=== PATIENT | female | born 1975 | race Caucasian/White ===

== ENCOUNTER 2017-06-11 03:25 | Emergency (ER) | payer MEDICAID ==
[~2017-06-11] VITALS: Ht 162.6 cm; Wt 77.1 kg
[2017-06-11 04:02] LABS: CALCIUM 8.9 mg/dL (8.5-10.1); CARBON DIOXIDE 29.3 mmol/L (21-32); CHLORIDE SERUM 108 mmol/L (98-107); CREATININE SERUM 0.9 mg/dL (0.6-1.0); GFR1 > 60 mL/min; GLUCOSE SERUM 132 mg/dL (74-106); POTASSIUM SERUM 3.7 mmol/L (3.5-5.1); SODIUM SERUM 142 mmol/L (136-145)
[2017-06-11 04:06] LABS: ALKALINE PHOSPHATASE 92 U/L (46-116); ALT/SGPT 23 U/L (14-59); AMYLASE 27 U/L (25-115); AST/SGOT 15 U/L (15-37); BILIRUBIN TOTAL 0.64 mg/dL (0.20-1.00); LIPASE 118 IU/L (73-393); TOTAL PROTEIN, SERUM 6.9 g/dL (6.4-8.2)
[2017-06-11 04:10] LABS: BASOPHIL % 0.6 % (0-2); PLATELET COUNT 221 x10^3mcL (130-400)
[2017-06-11 04:13] LABS: ALBUMIN 3.2 g/dL (3.4-5.0)
[2017-06-11 06:59] VITALS: BP 100/51
== END 2017-06-11 06:59 | disposition home or self-care (01) ==
LOC: ED 03:25
PROVIDERS: Emergency Medicine
DX: K80.20 Calculus of gallbladder without cholecystitis without obstruction (principal)
CPT/HCPCS: 36415; J1885; Q0092